=== PATIENT | male | born 1960 | race African-American/Black ===

== ENCOUNTER 2022-09-19 00:26 | Observation (INO) | payer BC ==
[2022-09-19] MEDS ORDERED: Acetaminophen 500 MG TAB ONE (01:01)
[2022-09-19] MEDS ORDERED: Ondansetron PF 4 MG/2 ML Vial ONE (01:01)
[2022-09-19 01:10] LABS: #Lymphocytes 0.5 thou/uL (1.20-3.40); #Monocytes 0.3 thou/uL (0.11-0.59); %Basophils 0.1 % (0.0-1.0); %Eosinophils 0.2 % (0.0-10.0); %Lymphocytes 5.8 % (21.0-51.0); %Monocytes 3.2 % (0.0-10.0); %Neutrophils 90.7 % (42.0-75.0); Hemoglobin 14.9 g/dL (14.0-18.0); Mean Corpuscular HGB CONC 33.4 g/dL (32.0-36.0); Mean Corpuscular Hemoglobin 31.2 pg (27.0-31.0); Mean Corpuscular Volume 93.5 fl (78.0-98.0); Platelet Count 206 10x3/uL (130-400); RBC Distribution Width 11.6 % (11.5-14.5); White Blood Cell (WBC) Count 8.9 10x3/uL (4.8-10.8)
[2022-09-19 01:32] LABS: ALT (SGPT) 21 U/L (8-55); AST (SGOT) 15 U/L (5-34); Albumin 4.1 g/dL (3.5-5.0); Alkaline Phosphatase 58 U/L (40-110); Anion Gap 15 mmol/L (10-20); BUN (Urea Nitrogen) 19 mg/dL (8.4-25.7); Bilirubin, Total 0.5 mg/dL (0.2-1.2); Calc. Creatinine Clearance 0 mL/min (70-130); Calcium 9.3 mg/dL (7.8-10.44); Carbon Dioxide 20 mmol/L (22-29); Chloride 110 mmol/L (98-107); Estimated GFR 69; Globulin 3.3 g/dL (2.4-3.5); Glucose 134 mg/dL (70-105); Lipase 44 U/L (8-78); Potassium 3.9 mmol/L (3.5-5.1); Protein, Total 7.4 g/dL (6.0-8.3); Sodium 141 mmol/L (136-145)
[2022-09-19] MEDS ORDERED: Piperacillin/Tazobactam 4.5 GM VIAL ONE ×2 (02:15→02:54)
[2022-09-19 03:53] LABS: Bilirubin Negative (Negative); Blood, Urine Negative (Negative); Clarity Clear (Clear); Glucose, Urine (Dipstick) Normal (Negative); Ketone, Urine Negative (Negative); Leukocyte Negative Leu/uL (Negative); Nitrite Negative (Negative); Protein, Urine (Dipstick) Negative (Neg-Trace); Specific Gravity, Urine 1.012 (1.002-1.036); Urobilinogen Normal mg/dL (Less than 2)
[2022-09-19 04:07] LABS: Lactic Acid 1.7 mmol/L (0.5-2.2)
[2022-09-19 05:53] VITALS: BMI 29.8
[2022-09-19] MEDS ORDERED: Acetaminophen 325 MG TAB PO PRN (05:56)
[2022-09-19 07:33] LABS: Hemoglobin A1c 5.9 % (4.0-6.0); Magnesium 1.9 mg/dL (1.6-2.6); Phosphorus 3.2 mg/dL (2.3-4.7)
[2022-09-19 07:38] LABS: Acetaminophen Less than 10.0 mcg/mL (10.0-30.0); Alcohol Less than 10 mg/dL (Less than 10); Salicylate Less than 8.0 mg/dL (15.0-30.0)
[2022-09-19 07:39] LABS: Troponin I Less than 0.010 ng/mL (< 0.028)
[2022-09-19] MEDS ORDERED: Iopamidol-370 76% 500 ML MDV (1 ML CHARGE) ONE (08:44)
[2022-09-19 10:13] LABS: Troponin I 0.012 ng/mL (< 0.028)
[2022-09-20 05:42] LABS: Anion Gap 11 mmol/L (10-20); BUN (Urea Nitrogen) 14 mg/dL (8.4-25.7); Calc. Creatinine Clearance 96 mL/min (70-130); Calcium 8.7 mg/dL (7.8-10.44); Carbon Dioxide 23 mmol/L (22-29); Chloride 109 mmol/L (98-107); Estimated GFR 72; Glucose 97 mg/dL (70-105); Potassium 3.9 mmol/L (3.5-5.1); Sodium 139 mmol/L (136-145)
[2022-09-20 06:41] LABS: Eosinophils 3 % (0-10); Hemoglobin 12.6 g/dL (14.0-18.0); Lymphocytes 46 % (21-51); MDiff Complete? YES; Mean Corpuscular HGB CONC 33.2 g/dL (32.0-36.0); Mean Corpuscular Hemoglobin 30.8 pg (27.0-31.0); Mean Corpuscular Volume 92.5 fl (78.0-98.0); Mean Platelet Volume 7.9 fL (7.4-10.4); Monocytes 11 % (0-10); Neutrophil 40 % (42-75); Platelet Count 222 10x3/uL (130-400); Platelet Morphology Comment Appears Adequate; RBC Distribution Width 11.6 % (11.5-14.5); RBC Morphology Normal; Red Blood Cell (RBC) Count 4.09 mill/uL (4.70-6.10); White Blood Cell (WBC) Count 3.1 10x3/uL (4.8-10.8)
[2022-09-20] MEDS ORDERED: Montelukast Sodium 10 mg Tablet PO SCH (09:00)
[2022-09-20] MEDS ORDERED: Losartan 25 MG TAB PO SCH (09:00)
[2022-09-20] MEDS ORDERED: Amlodipine 5 MG TAB PO SCH (09:00)
[2022-09-20 10:28] LABS: Amphetamine Not Detected (NotDetected); Barbiturates Screen Not Detected (NotDetected); Benzodiazepine Screen Not Detected (NotDetected); Cocaine Metabolite Screen Not Detected (NotDetected); Methadone Not Detected (NotDetected); Methamphetamine Not Detected (NotDetected); Opiate Screen Not Detected (NotDetected); Oxycodone Screen Not Detected (NotDetected); Phencyclidine (PCP) Not Detected (NotDetected); THC/Cannabinoid Screen Not Detected (NotDetected); Tricyclic Screen Not Detected (NotDetected)
[2022-09-20 13:41] LABS: Campy jejuni + coli by PCR Negative (Negative); STEC Shiga Toxin 1+2 Negative (Negative); Salmonella spp. by PCR Negative (Negative); Shigella spp + EIEC by PCR Negative (Negative)
[2022-09-20 16:37] VITALS: BP 125/79; TEMP 98.8
== END 2022-09-20 19:10 | disposition home or self-care (01) ==
LOC: ERS 00:26 → ERHOLD 05:34 → 2SW 16:51
PROVIDERS: ADMIT Family Medicine; ATTEND Family Medicine
DX: E86.0 Dehydration (principal); R55 Syncope and collapse; E87.20 Acidosis, unspecified; R73.9 Hyperglycemia, unspecified; I10 Essential (primary) hypertension; N44.2 Benign cyst of testis; J30.9 Allergic rhinitis, unspecified; R19.7 Diarrhea, unspecified; D64.9 Anemia, unspecified; D72.819 Decreased white blood cell count, unspecified; I08.8 Other rheumatic multiple valve diseases; Z79.899 Other long term (current) drug therapy
CPT/HCPCS: 36415; 71045; 74177; 80048; 80053; 80306; 80307; 81003; 83036; 83605; 83690; 83735; 84100; 84146; 84484; 85025; 87040; 87086; 87505; 93005; 93306; 93880; 96361; 96372; 96374; 96375; G0378; J1650; J2405; J2543; Q9967